=== PATIENT | male | born 1985 | race American Indian/Alaskan Native ===

== ENCOUNTER 2018-02-18 23:15 | Emergency (ER) | payer OTHER ==
--- NOTE | 2018-02-19 00:07 | XRay Report ---
FINAL REPORT PROCEDURE: XR CHEST ROUTINE 2V TECHNIQUE: PA and lateral views were obtained. HISTORY: Shortness of breath COMPARISON: No prior studies are available for comparison. FINDINGS: Heart size and pulmonary vasculature appear normal. The lungs are clear. No infiltrates masses effusions or pneumothorax are visualized. No acute bony abnormalities are identified. IMPRESSION: Negative exam.
[2018-02-19 00:12] LABS: Basophils # (Auto) 0.1 K/mm3 (0.0-0.1); Eosinophils # (Auto) 0.1 K/mm3 (0.0-0.4); Eosinophils % (Auto) 1.2 % (0.0-4.3); Hematocrit 40.4 % (35.5-45.6); Hemoglobin 14.1 gm/dl (11.8-15.2); Lymphocytes # (Auto) 1.9 K/mm3 (1.2-5.4); Mean Corpuscular HGB Conc 35 % (32-34); Mean Corpuscular Hemoglobin 32 pg (28-32); Mean Corpuscular Volume 91 fl (84-94); Monocytes # (Auto) 0.5 K/mm3 (0.0-0.8); Platelet Count 259 K/mm3 (140-440); Red Blood Count 4.46 M/mm3 (3.65-5.03); Red Cell Distribution Width 13.5 % (13.2-15.2)
[2018-02-19 01:22] LABS: BUN/Creatinine Ratio 10; Blood Urea Nitrogen 8 mg/dL (9-20); Calcium 9.6 mg/dL (8.4-10.2); Hemolysis Index 28
[2018-02-19] MEDS ORDERED: NORCO 5/325 PO ONE (02:52)
--- NOTE | 2018-02-19 03:00 | Emergency Department Report ---
HPI - General Chief Complaint: Dyspnea/Respdistress Time Seen by Provider: 02/19/18 02:45 - HPI HPI: Room 4 The patient is a 32-year-old male presented with a chief complaint of pleurisy and cough. The patient states for the past 3 days his chest pain and back pain with inspiration. Patient admits to occasional cough slightly productive of yellow sputum. Patient admits to rhinorrhea but denies fever. Patient was to slight shortness of breath. The patient gives his pain a score of 7.5/10 Location: [See above] Duration: 3 days Quality: Pain Severity: 7.5/10 Modifying factors: [see above] Context: [see above] Mode of transportation: [not driving] ED Past Medical Hx - Past Medical History Previous Medical History?: Yes Additional medical history: bronchitis - Surgical History Past Surgical History?: No - Family History Family history: no significant - Social History Smoking Status: Current Some Day Smoker (electronic cigarettes) Substance Use Type: None (denies illicit drug use), Alcohol (occasional) - Medications Home Medications: Home Medications Medication Instructions Recorded Confirmed Last Taken Type ALBUTEROL Inhaler (OR & NICU) 2 puff IH QID PRN #1 inhalation 02/19/18 Unknown Rx [Proair] Azithromycin [Zithromax Z-MARYJANE] 0 mg PO DAILY #6 tab 02/19/18 Unknown Rx Benzonatate [Tessalon Perle] 100 mg PO Q8H PRN #30 capsule 02/19/18 Unknown Rx Tramadol HCl [Ultram] 50 mg PO Q6H PRN #14 tablet 02/19/18 Unknown Rx ED Review of Systems ROS: Stated complaint: CHEST AND BACK AND LUMP LT SIDE RIB Other details as noted in HPI Constitutional: denies: fever Eyes: denies: eye pain ENT: denies: throat pain Respiratory: cough, shortness of breath Cardiovascular: chest pain Endocrine: no symptoms reported Gastrointestinal: denies: nausea Genitourinary: denies: dysuria Musculoskeletal: back pain, myalgia Neurological: denies: headache Physical Exam - Physical Exam Vital Signs: Vital Signs 02/18/18 02/19/18 23:30 01:21 Temperature 99 F Pulse Rate 69 58 L Respiratory 16 14 Rate Blood Pressure 125/75 Blood Pressure 127/79 [Left] O2 Sat by Pulse 96 100 Oximetry Physical Exam: GENERAL: The patient is well-developed well-nourished male lying on stretcher not appearing to be in acute distress. [] HEENT: Normocephalic. Atraumatic. Extraocular motions are intact. Patient has moist mucous membranes. NECK: Supple. Trachea midline CHEST/LUNGS: Clear to auscultation. There is no respiratory distress noted. HEART/CARDIOVASCULAR: Regular. There is no tachycardia. There is no gallop rub or murmur. ABDOMEN: Abdomen is soft, nontender. Patient has normal bowel sounds. There is no abdominal distention. SKIN: There is no rash. There is no edema. There is no diaphoresis. NEURO: The patient is awake, alert, and oriented. The patient is cooperative. The patient has normal speech MUSCULOSKELETAL: There is no evidence of acute injury. ED Course Vital Signs 02/18/18 02/19/18 23:30 01:21 Temperature 99 F Pulse Rate 69 58 L Respiratory 16 14 Rate Blood Pressure 125/75 Blood Pressure 127/79 [Left] O2 Sat by Pulse 96 100 Oximetry ED Medical Decision Making - Lab Data Result diagrams: 02/19/18 00:00 02/19/18 00:00 Laboratory Tests 02/19/18 02/19/18 02/19/18 00:00 00:00 03:05 WBC 7.4 RBC 4.46 Hgb 14.1 Hct 40.4 MCV 91 MCH 32 MCHC 35 H RDW 13.5 Plt Count 259 Lymph % (Auto) 25.0 Edgar % (Auto) 7.0 Eos % (Auto) 1.2 Baso % (Auto) 1.0 Lymph # 1.9 Edgar # 0.5 Eos # 0.1 Baso # 0.1 Seg Neutrophils % 65.8 Seg Neutrophils # 4.9 D-Dimer < 135 Sodium 140 Potassium 3.7 Chloride 101.7 Carbon Dioxide 27 Anion Gap 15 BUN 8 L Creatinine 0.8 Estimated GFR > 60 BUN/Creatinine Ratio 10 Glucose 76 Calcium 9.6 Troponin T < 0.010 02/19/18 03:05 WBC RBC Hgb Hct MCV MCH MCHC RDW Plt Count Lymph % (Auto) Edgar % (Auto) Eos % (Auto) Baso % (Auto) Lymph # Edgar # Eos # Baso # Seg Neutrophils % Seg Neutrophils # D-Dimer Sodium Potassium Chloride Carbon Dioxide Anion Gap BUN Creatinine Estimated GFR BUN/Creatinine Ratio Glucose Calcium Troponin T < 0.010 - EKG Data -: EKG Interpreted by Me EKG shows normal: sinus rhythm Rate: normal - EKG Data When compared to previous EKG there are: previous EKG unavailable Interpretation: nonspecific ST-T wave teresa (larkin ST elevation/early repolarization ) - Radiology Data Radiology results: report reviewed (chest x-ray), image reviewed (chest x-ray) interpreted by me: Chest x-ray-no focal infiltrates, no pneumothorax [facility] [address] [place] [address] XRay Report Signed Patient: JOSEPH LINDSAY MR#: [id number] : 1985 Acct: [id number] Age/Sex: 32 / M ADM Date: 02/18/18 Loc: ED Attending Dr: Ordering Physician: SUJEY NEGRON MD Date of Service: 02/18/18 Procedure(s): XR chest routine 2V Accession Number(s): [id number] cc: ED MD MIGDALIA Fluoro Time In Minutes: FINAL REPORT PROCEDURE: XR CHEST ROUTINE 2V TECHNIQUE: PA and lateral views were obtained. HISTORY: Shortness of breath COMPARISON: No prior studies are available for comparison. FINDINGS: Heart size and pulmonary vasculature appear normal. The lungs are clear. No infiltrates masses effusions or pneumothorax are visualized. No acute bony abnormalities are identified. IMPRESSION: Negative exam. Transcribed By: DFN Dictated By: MERARI SANFORD MD Electronically Authenticated By: MERARI SANFORD MD Signed Date/Time: 6 DD/ TD/TT: 02/19/186 - Differential Diagnosis bronchitis, pneumothorax, costochondritis, PE, ACS Critical care attestation.: If time is entered above; I have spent that time in minutes in the direct care of this critically ill patient, excluding procedure time. ED Disposition Clinical Impression: Acute bronchitis, Pleurisy Disposition: DC-01 TO HOME OR SELFCARE Is pt being admited?: No Does the pt Need Aspirin: No Condition: Stable Instructions: Acute Bronchitis (ED) Additional Instructions: Return to the emergency department immediately should you develop worsening symptoms, fever, inability to tolerate food or liquid or any other concerns. Prescriptions: ALBUTEROL Inhaler (OR & NICU) [Proair] 2 puff IH QID PRN #1 inhalation PRN Reason: Shortness Of Breath Azithromycin [Zithromax Z-MARYJANE] 0 mg PO DAILY #6 tab Benzonatate [Tessalon Perle] 100 mg PO Q8H PRN #30 capsule PRN Reason: Cough Tramadol HCl [Ultram] 50 mg PO Q6H PRN #14 tablet PRN Reason: Pain, Moderate (4-6) Referrals: PRIMARY CARE, [Primary Care Provider] - 3-5 Days [facility] [Outside] - 3-5 Days Time of Disposition: 04:04
[2018-02-19 04:15] VITALS: BP 126/78
== END 2018-02-19 04:19 | disposition home or self-care (01) ==
LOC: ED 23:15
DX: J20.9 Acute bronchitis, unspecified (principal); F17.200 Nicotine dependence, unspecified, uncomplicated; F10.920 Alcohol use, unspecified with intoxication, uncomplicated; Z88.8 Allergy status to other drugs, medicaments and biological substances
CPT/HCPCS: 36415; 71046; 80048; 84484; 85025; 85379; 93005; 93010; 99284